=== PATIENT | female | born 1965 | race African-American/Black ===

== ENCOUNTER 2022-09-20 09:04 | Inpatient (IN) | payer OTHER ==
[~2022-09-20] VITALS: Ht 167.6 cm; Wt 142.4 kg
[2022-09-20 10:20] LABS: CLARITY URINE CLEAR (CLEAR); COLOR URINE YELLOW (YELLOW); KETONES URINE NEGATIVE (NEGATIVE); LEUKOCYTE ESTERASE URINE NEGATIVE (NEGATIVE); NITRITE URINE NEGATIVE (NEGATIVE); OCCULT BLOOD URINE NEGATIVE (NEGATIVE); PROTEIN URINE NEGATIVE (NEGATIVE); SPECIFIC GRAVITY URINE 1.026 (1.005-1.030); UROBILINOGEN URINE 0.2 E.U./dL (0.2-1.0)
[2022-09-20 10:30] LABS: CHLORIDE 92 mEq/L (98-107)
[2022-09-20 10:31] LABS: BASOPHILS % 0.7 % (0.0-2.0); HEMATOCRIT. 42.2 % (36.0-48.0); HEMOGLOBIN. 13.7 g/dL (12.0-16.0); LYMPHOCYTES % 21.4 % (20.0-50.0); MEAN CORPUSCULAR HEMOGLOBIN 29.6 pg (28.0-32.0); NEUTROPHILS % 69.9 % (40.0-76.0); PLATELET 234 x1000/uL (130-400); RED BLOOD CELL COUNT 4.64 mill/uL (4.2-5.4)
[2022-09-20] MEDS ORDERED: SODIUM CHLORIDE 0.9% 1,000 ML IV ONE ×2 (14:00→15:15)
[2022-09-20 15:03] LABS: BG BASE EXCESS -1.2 mmol/L (-2.0-2.0); BG CARBOXYHEMOGLOBIN 0.9 % (0.5-1.5); BG DEOXYHEMOGLOBIN 3.6 % (0.0-5.0); BG FRACTION INSPIRED OXYGEN 21; BG HCO3 ACT 22.7 mmol/L (22.0-26.0); BG METHEMOGLOBIN 0.2 % (0.0-1.5); BG OXYGEN SATURATION 96.4 % (92.0-98.5); BG OXYHEMOGLOBIN 95.3 % (94.0-97.0); BG PCO2 35.7 mmHg (35.0-45.0); BG PH 7.422 (7.350-7.450); BG PO2 79.7 mmHg (75.0-100.0); BG SAMPLE SITE RIGHT RADIAL; BG TOTAL HEMOGLOBIN 13.9 g/dL (12.0-18.0); BG VENT MODE ROOM AIR
[2022-09-20] MEDS ORDERED: INSULIN REGULAR (HUMULIN R) 300UNITS/3ML VIAL SUBCUT NR (15:18)
[2022-09-20 15:43] LABS: CHLORIDE 89 mEq/L (98-107)
[2022-09-20] MEDS ORDERED: POTASSIUM CHLORIDE 20MEQ/PACKET PO NR (16:00)
[2022-09-20 20:00] VITALS: BP 127/75
[2022-09-20] MEDS ORDERED: LOSA1TAB37 MT (21:40)
[2022-09-20] MEDS ORDERED: MELO5CAP PO (21:40)
[2022-09-20] MEDS ORDERED: METO100T16 MT (21:40)
[2022-09-20] MEDS ORDERED: AMLO5TAB88 MT (21:40)
[2022-09-20] MEDS ORDERED: ONDANSETRON HCL 4MG/2ML INJ IV PRN (22:30)
[2022-09-20] MEDS ORDERED: ACETAMINOPHEN 325MG TABLET PO PRN (22:30)
[2022-09-20] MEDS ORDERED: CLONIDINE 0.1MG TABLET PO PRN (22:30)
[2022-09-20] MEDS ORDERED: DEXTROSE 50% WATER 50ML SYRINGE IV PRN (22:45)
[2022-09-20] MEDS: SODIUM CHLORIDE 0.45% 1,000 ML IV SCH (23:14)
[2022-09-20] MEDS: AMLODIPINE 5MG TABLET PO SCH (23:14)
[2022-09-21] VITALS: BP 136/68
[2022-09-21 04:00] VITALS: BP 117/76
[2022-09-21] MEDS: SODIUM CHLORIDE 0.45% 1,000 ML IV SCH ×2 (06:09→15:56)
[2022-09-21] MEDS: BLOOD SUGAR DIAGNOSTIC STRIP TEST SCH ×3 (06:09→16:50)
[2022-09-21] MEDS: INSULIN LISPRO 100 UNITS/ML SUBCUT SCH ×3 (06:32→17:01)
[2022-09-21 07:30] LABS: BASOPHILS % 0.7 % (0.0-2.0); EOSINOPHILS % 2.8 % (0.0-5.0); HEMATOCRIT. 37.5 % (36.0-48.0); HEMOGLOBIN. 12.9 g/dL (12.0-16.0); LYMPHOCYTES % 28.9 % (20.0-50.0); MEAN CORPUSCULAR HEMOGLOBIN 30.4 pg (28.0-32.0); MEAN CORPUSCULAR VOLUME 88.6 fL (81.0-99.0); MEAN PLATELET VOLUME 10.2 fl (7.4-10.4); MONOCYTES % 8.5 % (2.0-8.0); NEUTROPHILS % 59.1 % (40.0-76.0); PLATELET 216 x1000/uL (130-400); RED BLOOD CELL COUNT 4.23 mill/uL (4.2-5.4); RED CELL DISTRIBUTION WIDTH 13.8 % (11.6-14.6)
[2022-09-21 08:00] VITALS: BP 128/79
[2022-09-21 08:05] LABS: CHLORIDE 97 mEq/L (98-107)
[2022-09-21] MEDS: AMLODIPINE 5MG TABLET PO SCH (08:56)
[2022-09-21] MEDS: METOPROLOL TARTRATE 100MG TABLET PO SCH ×2 (08:57→16:58)
[2022-09-21] MEDS ORDERED: ENOXAPARIN 40MG/0.4ML SYR SUBCUT SCH (09:00)
[2022-09-21] MEDS ORDERED: INFLUENZA VACCINE 05/PF 0.5 ML SYRINGE IM ONE (09:00)
[2022-09-21] MEDS ORDERED: PNEUMOCOCCAL 23-VAL P-SAC VAC 0.5 ML IM ONE (09:00)
[2022-09-21] MEDS ORDERED: INSULIN GLARGINE 100 UNITS/ML SUBCUT SCH ×2 (10:00→22:00)
[2022-09-21 12:00] VITALS: BP 137/73
[2022-09-21] MEDS ORDERED: INSULIN LISPRO 100 UNITS/ML SUBCUT NR (12:45)
[2022-09-21 15:29] LABS: HEPATITIS B SURFACE ANTIGEN NEGATIVE
[2022-09-21 16:00] VITALS: BP 132/75
[2022-09-21] MEDS ORDERED: METFORMIN HCL 500MG TABLET PO SCH (17:10)
[2022-09-21 20:02] VITALS: BP 144/77
== END 2022-09-21 20:40 | disposition home or self-care (01) | DRG 639 ==
LOC: ER 09:04 → 7EST 16:11 → EDBEDREQ 16:15 → EDBEDREQTM 16:15 → EDBEDREQSVC 16:15
PROVIDERS: ADMIT Internal Medicine; ATTEND Internal Medicine
DX: E11.9 Type 2 diabetes mellitus without complications (principal); I10 Essential (primary) hypertension; Z88.8 Allergy status to other drugs, medicaments and biological substances
CPT/HCPCS: 36415; 36600; 71045; 80048; 80053; 81003; 82010; 82375; 82805; 82962; 83036; 85025; 86803; 87340; 99285; J1650; J1815; J7030